=== PATIENT | male | born 1970 | race African-American/Black ===

== ENCOUNTER 2016-07-20 07:58 | Inpatient (IN) ==
[2016-07-20] MEDS ORDERED: DILTIAZEM 100 MG VIAL.ADD IV ONE (08:16)
[2016-07-20] MEDS ORDERED: SODIUM CHLORIDE 0.9% 100 ML IV ONE (08:16)
[2016-07-20] MEDS ORDERED: DILTIAZEM 50 MG/10 ML VIAL IV ONE (08:17)
[2016-07-20] MEDS ORDERED: DILTIAZEM 50 MG/10 ML VIAL IV STA ×3 (08:26→08:59)
[2016-07-20] MEDS ORDERED: SODIUM CHLORIDE 0.9% 500 ML IV STA (08:29)
[2016-07-20 08:35] LABS: Basophils % 0.2 % (0.0-0.8); Eosinophils # 0.3 10*3/uL (0.0-0.87); Eosinophils % 2.8 % (0.00-10.9); Hemoglobin 15.8 GM/DL (14.0-18.0); Immature Granulocytes % 0.2 %; Immature Granulocytes Absolute 0.02 #; Lymphocytes # 2.4 10*3/uL (1.4-4.0); Lymphocytes % 23.9 % (21.2-54.2); Mean Corpuscular HGB Conc 31.6 GM/DL (32-36); Mean Corpuscular Hemoglobin 25 PG (27-34); Mean Corpuscular Volume 80.4 FL (87-102); Monocytes # 0.6 10*3/uL (0.11-0.8); Neutrophils # 6.8 10*3/uL (1.4-7.4); Neutrophils % 66.9 % (38.7-73.9); Platelet Count 222 T/CUMM (130-400); Red Blood Count 6.22 MC/CUMM (3.8-5.5); Red Cell Distribution Width 14.3 % (9.3-17.3); White Blood Count 10.2 T/CUMM (4-12)
[2016-07-20] MEDS: DILTIAZEM INJ 100 MG in SODIUM CHLORIDE 0.9% 100 ML IV SCH ×2 (08:36→08:37)
[2016-07-20 09:01] LABS: Alanine Aminotransferase 38 U/L (16-61); Albumin 3.4 G/DL (3.4-5.0); Alkaline Phosphatase 119 U/L (45-117); Aspartate Amino Transferase 18 U/L (0-37); Blood Urea Nitrogen 10 MG/DL (7-18); Calcium 8.9 MG/DL (8.5-10.1); Glucose 108 MG/DL (74-106); Osmolality,Calculated 278.4 MOS/KG (273-304); Potassium 3.8 MMOL/L (3.5-5.1); Sodium 140 MMOL/L (136-145); Total Protein 7.5 G/DL (6.4-8.3); Troponin I Only < 0.015 NG/ML (0.00-0.045)
--- NOTE | 2016-07-20 09:05 | Emergency Department Note ---
Tootie Prater Hilary, am scribing for, and in the presence of, Felice Price MD 09: 05. Dee Prater James D, MD, personally performed the services described in this documentation, ascribed by Ana Maria Sommers in my presence, and it is both accurate and complete 905 . Arrival - Arrival Chief Complaint: Arrhythmia/Palpitations Stated Complaint: afib ED Nursing Triage Note: C/O HEART PALPITATIONS WITH ONSET 0600 THIS MORNING. DENIES SOB. PT THINKS HE IS IN AFIB Mode of Arrival: Ambulatory Limitations: No Limitations Source: Patient - History of Present Illness HPI Narrative: Patient is 46 year old Male presenting to the ED with complaints of heart palipatations onset of 06:00 this morning. Patient states that this happens every year and denies chest pain or SOB. 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 No other complaints or problems stated in the ED. Onset (ago): hour(s) Severity: moderate Severity scale (1-10): 3 Allergies/Adverse Reactions: Allergies Allergy/AdvReac Type Severity Reaction Status Date / Time No Known Allergies Allergy Verified 03/10/15 18:05 Home Medications: Home Medications Medication Instructions Recorded Confirmed Type Aspirin [Ecotrin] 81 mg PO DAILY 08/03/14 07/20/16 History Atorvastatin [Lipitor] 20 mg PO DAILY 08/03/14 07/20/16 History Ergocalciferol (Vitamin D2) 50,000 unit PO FR 07/20/16 07/20/16 History [Vitamin D2] Simvastatin [Zocor] 10 mg PO DAILY 07/20/16 07/20/16 History diltiaZEM HCl [Diltiazem HCl] 120 mg PO DAILY 07/20/16 07/20/16 History Review of System - Review of System 12 point system: reviewed and no additional remarkable complaints except as stated - Review of System Cardiovascular: Present: palpitations. Absent: chest pain, dyspnea on exertion Medical,Surgical,& Family Hx - Medical History Cardio: History of: Cardiac Dysrhythmia (AFIB) Endocrine: History of: Dyslipidemia Respiratory: History of: Obstructive Sleep Apnea Gastrointestinal: History of: GERD - Surgical History Cardiac Surgeries: Patient Denies: Cardiac Catheterization Neurologic Surgeries: Patient denies: Neurologic Surgery Abdominal Surgeries: Surgical HX of: Abdominal Surgery (BENIGN TUMOR REMOVED FROM COLON) - Family History Family History: Reports;: Family Heart Disease - Social History Smoking Status: Never smoker Frequency of Alcohol Use: None Type of Drug Use: None Exam Physical Examination: GENERAL: This is a well-nourished, well-developed Male in no apparent distress. VITAL SIGNS: Temperature: 98.8 F Pulse: 100H Respiratory: 18 BP: 126/101 O2Sat: 96 HEENT: Head is normocephalic and atraumatic. Pupils are equally round and reactive to light. Extraocular movement are intact. Oropharynx is benign with moist mucous membranes. NECK: Neck is soft and supple without tenderness. There are no masses. There is no lymphadenopathy. LUNGS: Lungs are clear to auscultation bilaterally. Chest rises symmetrically. There is no chest wall tenderness. CV: Heart is irregulary irregular and rhythm without murmurs, rubs, or gallops. ABDOMEN: Abdomen is soft, non-tender to palpation. There are no abnormal masses palpated. There is no organomegaly. Bowel sounds are present and active. SKIN: Skin is warm and dry. No rash. EXTREMITIES: Patient has full range of motion without tenderness. There is no pedal edema. NEUROLOGIC: Awake, alert, and oriented x4. Cranial nerves II through XII are grossly intact. There are no motorsensory deficits. PSYCHIATRIC: Normal affect. Normal mood. Vital Signs: Vital Signs Temperature 98.8 F 07/20/16 08:27 Pulse Rate 105 H 07/20/16 08:30 Respiratory Rate 20 07/20/16 08:30 Blood Pressure 111/71 07/20/16 08:30 O2 Sat by Pulse Oximetry 97 07/20/16 08:30 - Cardiovascular Cardiovascular exam: Present: tachycardia, irregular rhythm Course - Consultations Consultation #1: Discussed with Dr. Castillo. Patient will be admitted to his service. Initial orders written for him. He will assume care upon patient's arrival to the frances. Time: 09:21 Results - Labs CBC & BMP: 07/20/16 08:25 07/20/16 08:25 Lab Results: I have reviewed the patients labs Labs: Laboratory Tests 07/20/16 08:25 WBC 10.2 RBC 6.22 H Hgb 15.8 Hct 50.0 MCV 80.4 L MCH 25 L MCHC 31.6 L Laboratory Tests 07/20/16 08:25 Chloride 108 H Glucose 108 H Alkaline Phosphatase 119 H Globulin 4.1 H Albumin/Globulin Ratio 0.8 L - EKG EKG results: interpreted by ERMD - Impressions EKG: Atrial fib with RVR, rate 159, ST segment depression, normal axis. - Diagnostic Findings Procedure: Chest x-ray: image reviewed by me Disposition Clinical Impression: Atrial fibrillation with RVR Case discussed with: patient Condition: Stable
--- NOTE | 2016-07-20 09:15 | EKG Report ---
Please refer to the EKG image. Final interpretation is pending.
[2016-07-20] MEDS ORDERED: ENOXAPARIN 100 MG/ML SYRINGE SUBCUT STA (09:19)
[2016-07-20] MEDS ORDERED: ENOXAPARIN 100 MG/ML SYRINGE SUBCUT ONE (09:37)
--- NOTE | 2016-07-20 09:47 | XRay Report ---
XR chest 1V portable Indication: A. Fib with rapid ventricular response. Chest one view: Comparison 08/15/2015. Heart size remains at the upper limits normal, with continued marked pulmonary hypoinflation and central pulmonary vascular crowding. No pulmonary edema or focal infiltrate shown. Impression: No change. Continued marked pulmonary hypoinflation. PROCEDURE INTERPRETED AT [facility] DEPARTMENT OF RADIOLOGY Final Report Signed by: Robbi Calvo M.D.
--- NOTE | 2016-07-20 10:44 | Cardiology History & Physical ---
Assessment and Plan - Time spent with patient Time spent with patient: Greater than 30 minutes (1) Bronchitis Status: Acute Assessment and plan: SEE PLAN OF CARE LISTED BELOW Current Visit: Yes (2) Swelling Status: Acute Assessment and plan: SEE PLAN OF CARE LISTED BELOW Current Visit: Yes (3) Atrial fibrillation with rapid ventricular response Status: Acute Assessment and plan: SEE PLAN OF CARE LISTED BELOW Current Visit: No (4) Hyperlipidemia Status: Chronic Assessment and plan: SEE PLAN OF CARE LISTED BELOW Current Visit: No (5) Obesity Status: Chronic Assessment and plan: SEE PLAN OF CARE LISTED BELOW Current Visit: No (6) Obstructive sleep apnea Status: Chronic Assessment and plan: SEE PLAN OF CARE LISTED BELOW Current Visit: No History of Present Illness Chief complaint: atrial fib with RVR History of present illness: Mr. Reynolds is a 46 year old male followed by Dr. Rip Izaguirre. He was last seen his cardiology clinic August 28, 2015. Risk factors include: hyperlipidemia, obesity. History of obstructive sleep apnea with reported compliance. Patient has a history of paroxysmal atrial fibrillation. He was last seen in hospital July 2015 with a second onset of atrial fibrillation. At one point, he was taking Xarelto which caused hematuria and bright red bleeding from the rectum. This resolved when he stopped his medication he has been maintained on aspirin only. His CHADVASC score has been 0. Mr. Reynolds tells me when he was here last, his rhythm returned back to normal sinus rhythm after being given IV medication, then a pill. He has never received KOLE or DCCV. Patient believes he can tell when he is in a normal sinus rhythm. Yesterday, he began to experience coughing, congestion, sore throat and sinus drainage believed to be related to excessive pollen. This morning, he woke up coughing heavily and felt his heart start racing. He did not try vagal maneuvers. Because the heart racing became intense he felt as if he should be evaluated in the emergency department. Upon arrival to the emergency department, noted to be in atrial fibrillation with rapid ventricular response with an EKG documented around 160 bpm. He still maintained on IV Cardizem 50 mg/h his heart rate is now at 10 5 bpm. He denies chest pain, heaviness or tightness. His breathing has been stable. Patient is concerned that he has gained a lot of weight recently. He states he feels as if he is swelling more so than usual over the past several weeks. I will order an echocardiogram to evaluate LVEF. I have asked that his family bring his sleep device that he can use tonight. I will add a magnesium level to his labs. Will further discuss with Dr. Castillo management of this patient and await his recommendatIONS. ASSESSMENT/PLAN: 1. ATRIAL FIB WITH RVR -IV Cardizem now controlling rate. Will adjust accordingly. He is being transferred to our telemetry unit where we will continue to monitor him. 2. DYSLIPIDEMIA -continue lipid-lowering agent. Fasting lipid profile in the morning 3. SLEEP APNEA -will ask that he bring his sleep device to use each night 4. OBESITY -dietary counseling prior to discharge 5. SINUS CONGESTION AND COUGH -we will treat for sinus drainage, possible bronchitis 6. SWELLING -will order echocardiogram. Home Medications Medication Instructions Recorded Confirmed Type Aspirin [Ecotrin] 81 mg PO DAILY 08/03/14 07/20/16 History Atorvastatin [Lipitor] 20 mg PO DAILY 08/03/14 07/20/16 History Ergocalciferol (Vitamin D2) 50,000 unit PO FR 07/20/16 07/20/16 History [Vitamin D2] Simvastatin [Zocor] 10 mg PO DAILY 07/20/16 07/20/16 History diltiaZEM HCl [Diltiazem HCl] 120 mg PO DAILY 07/20/16 07/20/16 History Allergies Allergy/AdvReac Type Severity Reaction Status Date / Time No Known Allergies Allergy Verified 03/10/15 18:05 Review of systems: REVIEW OF SYSTEMS: - Constitutional Constitutional: Present: Fatigue. Absent: syncope, anorexia, night sweats - EENT Eyes: Absent: blurry vision, loss of vision, diplopia Ears: Absent: decreased hearing, ear pain, ear discharge Throat: Sore throat from sinus drainage - Cardiovascular Cardiovascular: Denies chest pain with exertion, dyspnea on exertion. Feels like he is retaining fluid though no actual edema noted. Rare palpitations. Respiratory Respiratory: Present: cough, nonproductive. Absent: wheezing, hemoptysis, change in phlegm color - Gastrointestinal Gastrointestinal: Denies: constipation. Absent: abdominal pain, hematemesis, hematochezia, melena, change in bowel habits, nausea - Genitourinary Genitourinary: Absent: difficulty urinating, dysuria, urinary hesitancy, flank pain - Musculoskeletal Musculoskeletal: Present: back pain Absent: joint swelling, muscle cramps, muscle weakness - Neurological Neurological: Present: normal gait without frequent falls. Absent: dizziness, hemiparesis - Psychiatric Psychiatric: Absent: anxiety, depression, difficulty concentrating - Endocrine Endocrine: Present: fatigue. Absent: cold intolerance, heat intolerance, polyuria, polyphagia, polydipsia - Hematologic/Lymphatic Hematologic/Lymphatic: Present: easy bruising. Absent: easy bleeding, easy bruisability -Integumentary Integumentary: Absent: lesions, rashes, skin breakdown Medical,Surgical,& Family Hx - Medical History Cardio: History of: Cardiac Dysrhythmia (AFIB) No history of: CAD, Hypertension Endocrine: History of: Dyslipidemia Respiratory: History of: Obstructive Sleep Apnea Gastrointestinal: History of: GERD - Surgical History Cardiac Surgeries: Patient Denies: Cardiac Catheterization Neurologic Surgeries: Patient denies: Neurologic Surgery Abdominal Surgeries: Surgical HX of: Abdominal Surgery (BENIGN TUMOR REMOVED FROM COLON) - Family History Family History: Reports;: Family Heart Disease - Social History Smoking Status: Never smoker Have you smoked in the last 12 months: No Frequency of Alcohol Use: None Type of Drug Use: None Functional capacity: independent ambulation Cardiology Physical Exam - Constitutional Vitals: Vital Signs Temp Pulse Resp BP Pulse Ox 98.8 F 105 H 20 111/71 97 07/20/16 08:27 07/20/16 08:30 07/20/16 08:30 07/20/16 08:30 07/20/16 08:30 Exam: General: [Appears well with no apparent distress.] [Pleasant and cooperative. ] [Appears comfortable.] HEENT: [PERRL, normocephalic, atraumatic. Mucous membranes moist. No jaundice noted. Conjunctiva moist and clear, sclerae anicteric] Neck: No JVD/HJR, no thyromegaly or lymphadenopathy noted. No carotid bruit appreciated Cardiac: [Regular rate and rhythm.] [No murmur rub or gallop.] Lungs: [Clear to auscultation without accessory muscle use to assist the respiratory pattern.] Not requiring oxygen Abdomen: Soft, bowel sounds normoactive. Nontender and nondistended. No abdominal bruit or thrill noted. No masses noted. Musculoskeletal: No fluid collection. Decreased range of motion is noted. Extremities: No clubbing, cyanosis noted. [ No edema noted.] Upper extremity pulses 2+. Lower extremity pulses 2+. Capillary refill less than 3 seconds. Skin: No unusual lesions or rashes. No skin breakdown appreciated. Neuro: Awake, alert and oriented 3. Moves all extremities well without hemiparesis or paralysis. No essential tremor is appreciated. Result/EKG - Labs CBC & BMP: 07/20/16 08:25 07/20/16 08:25 Lab Results: I have reviewed the past 24 hour labs - Diagnostic Findings Procedure: Chest x-ray: report reviewed by sc - EKG EKG results: interpreted by sc EKG shows: atrial fibrillation (RVR)
[2016-07-20 11:08] LABS: Free T4 (Free Thyroxine) 0.97 NG/DL (0.76-1.46); Magnesium 1.8 MG/DL (1.8-2.4)
[2016-07-20] MEDS ORDERED: MAGNESIUM SULF RIDER 4 GM in PREMIX 1 EACH IV PRN (11:11)
[2016-07-20] MEDS ORDERED: MAGNESIUM SULF RIDER 2 GM in PREMIX 1 EACH IV PRN (11:11)
[2016-07-20] MEDS: CETIRIZINE 10 MG TABLET PO SCH (12:32)
[2016-07-20] MEDS: AZITHROMYCIN 250 MG TABLET PO SCH (12:32)
[2016-07-20] MEDS: SODIUM CHLORIDE 0.9% 1,000 ML IV SCH (12:32)
[2016-07-20 12:42] LABS: INR 1.1; PT Patient Result 11.4 SECS; Partial Thromboplastin Time 30.6 SECS (0-40)
[2016-07-20] MEDS ORDERED: POTASSIUM CHLORIDE 20 MEQ TABLET PO ONE (12:43)
[2016-07-20] MEDS ORDERED: DRONEDARONE 400 MG TABLET PO ONE (13:00)
[2016-07-20] MEDS: FLUTICASONE 50 MCG NASAL SPRAY 16 GM BOTTLE BOTH NARES SCH (13:51)
[2016-07-20] MEDS: DRONEDARONE 400 MG TABLET PO SCH (17:35)
--- NOTE | 2016-07-20 19:53 | ECHO Report ---
ReynoldsFelice Exam Date: 07/20/2016 14:44 Referring Physician: Technologist: Merry Couch Age: 46 Ht (in): 66 Wt (lb): 240 Gender: M Exam Location: [facility] Echo Indications: bronchitis, hyperlipidemia, obesity, OTILIA, palpitation, A Fib, hyperglycemia BP: 117 / 72 HR: 86 Rhythm: Atrial fibrillation Technical Quality: IMPRESSIONS Normal left ventricular cavity size. Moderate concentric left ventricular hypertrophy. Left ventricular ejection fraction is estimated at 60 %. Mildly dilated right ventricle, with normal systolic function. Mild biatrial enlargement. Mild aortic insufficiency. MEASUREMENTS (Male / Female) Normal Values 2D ECHO LV Diastolic Diameter PLAX 4.2 cm 4.2 - 5.9 / 3.9 - 5.3 cm LV Systolic Diameter PLAX 3.0 cm LV Fractional Shortening PLAX 28.8 % IVS Diastolic Thickness 1.7 cm 0.6 - 1.0 / 0.6 - 0.9 cm LVPW Diastolic Thickness 1.3 cm 0.6 - 1.0 / 0.6 - 0.9 cm RV Internal Dim ED PLAX 2.7 cm Aortic Root Diameter 2.8 cm LA Systolic Diameter LX 4.3 cm 3.0 - 4.0 / 2.7 - 3.8 cm DOPPLER TR Peak Velocity 214.0 cm/s TR Peak Gradient 18.3 mmHg FINDINGS Left Ventricle Normal left ventricular cavity size. Moderate concentric left ventricular hypertrophy. Left ventricular ejection fraction is estimated at 60 %. Unable to estimate diastolic function due to A. fib. Right Ventricle Mildly dilated right ventricle, with normal systolic function. Right Atrium Mild right atrial enlargement Left Atrium Mild left atrial enlargement. Mitral Valve Structurally normal mitral valve, with trace regurgitation. Aortic Valve Structurally normal aortic valve, with mild insufficiency, without stenosis. Tricuspid Valve Morphologically normal tricuspid valve. Mild tricuspid valve regurgitation. Tricuspid regurgitation velocities suggest a PAP of 18.3 mmHg + RAP. Pulmonic Valve Morphologically normal pulmonic valve. Trace pulmonary valve regurgitation. Pericardium No pericardial effusion. Aorta Normal size aortic root and proximal ascending aorta. Dat Castillo (Electronically Signed) Final Date: 20 July 2016 19:52
[2016-07-20] MEDS ORDERED: ATORVASTATIN 20 MG TABLET PO SCH (21:00)
[2016-07-20] MEDS: ENOXAPARIN 100 MG/ML SYRINGE SUBCUT SCH (21:16)
[2016-07-21] MEDS: SODIUM CHLORIDE 0.9% 1,000 ML IV SCH (01:00)
[2016-07-21 06:23] LABS: Basophils % 0.1 % (0.0-0.8); Eosinophils # 0.4 10*3/uL (0.0-0.87); Eosinophils % 3.3 % (0.00-10.9); Hematocrit 46.4 VOL% (42.0-52.0); Hemoglobin 14.6 GM/DL (14.0-18.0); Immature Granulocytes % 0.2 %; Immature Granulocytes Absolute 0.02 #; Lymphocytes % 28.5 % (21.2-54.2); Mean Corpuscular HGB Conc 31.5 GM/DL (32-36); Mean Corpuscular Hemoglobin 26 PG (27-34); Mean Corpuscular Volume 81.7 FL (87-102); Mean Platelet Volume 10.1 FL (9.6-12.0); Monocytes # 0.5 10*3/uL (0.11-0.8); Monocytes % 4.9 % (1.7-12.7); Neutrophils # 6.7 10*3/uL (1.4-7.4); Platelet Count 212 T/CUMM (130-400); Red Blood Count 5.68 MC/CUMM (3.8-5.5); Red Cell Distribution Width 14.4 % (9.3-17.3); White Blood Count 10.6 T/CUMM (4-12)
[2016-07-21 06:58] LABS: Calcium 8.9 MG/DL (8.5-10.1); Osmolality,Calculated 285.8 MOS/KG (273-304); Potassium 4.2 MMOL/L (3.5-5.1)
[2016-07-21 07:01] LABS: Calcium 8.8 MG/DL (8.5-10.1); Potassium 4.2 MMOL/L (3.5-5.1); Risk Ratio 3.5
[2016-07-21] MEDS ORDERED: ASPIRIN EC 81 MG TABLET PO SCH (09:00)
--- NOTE | 2016-07-21 09:34 | EKG Report ---
Please refer to the EKG image. Final interpretation is pending.
[2016-07-21] MEDS: CETIRIZINE 10 MG TABLET PO SCH (10:18)
[2016-07-21] MEDS: ENOXAPARIN 100 MG/ML SYRINGE SUBCUT SCH (10:20)
[2016-07-21] MEDS: DILTIAZEM INJ 100 MG in SODIUM CHLORIDE 0.9% 100 ML IV SCH (10:22)
[2016-07-21] MEDS: AZITHROMYCIN 250 MG TABLET PO SCH (10:51)
[2016-07-21] MEDS: FLUTICASONE 50 MCG NASAL SPRAY 16 GM BOTTLE BOTH NARES SCH (10:53)
[2016-07-21] MEDS: DRONEDARONE 400 MG TABLET PO SCH (10:53)
--- NOTE | 2016-07-21 11:18 | Discharge Summary ---
Hospital Course - Hospital Course Hospital Course: Mr. Reynolds is a 46 year old male followed by Dr. Rip Izaguirre. He has a history of hyperlipidemia, obesity, paroxysmal atrial fibrillation, sleep apnea (compliant). Yesterday he presented to the emergency room after experiencing palpitations with his heart racing. He was noted to be in atrial fibrillation with rapid ventricular response with heart rate around 160 bpm. He was started on IV Cardizem drip which was weaned after his heart rate improved. He was started on Multaq 400 mg p.o. twice daily yesterday. He was planned for KOLE cardioversion today with Dr. Castillo but has since converted to normal sinus rhythm and is doing well. QTC this morning is 398. Blood pressure has been well controlled. Current labs are stable. At this time, he has met criteria for discharge and is ready to go home. We will allow him to be discharged home today on the current therapy. We will start him on long-term anticoagulation at discharge. He will continue this for several weeks and then discontinue if he has no relapse of atrial fibrillation. He will follow-up with Dr. Izaguirre in 1 week with an EKG. If his paroxysmal atrial fibrillation persists, he may be a candidate for ablation in the future. We will place a consult for outpatient Cardiac Rehab for risk factor modification. He should also continue his CPAP nightly. Mr. Reynolds also complained of sinus congestion and cough on admission. He is being treated with Azythromycin, Flonase, and Zyrtec and should avoid over the counter medications which include: decongestants, alpha-adrenergics such as phenylephrine. He should also avoid caffeine. - Time spent with patient Time with patient DS: Less than 30 minutes Diagnosis - Discharge Diagnosis (1) Atrial fibrillation with RVR Status: Resolved (2) Bronchitis Status: Acute (3) Swelling Status: Acute (4) Hyperlipidemia Status: Chronic (5) Obesity Status: Chronic (6) Obstructive sleep apnea Status: Chronic Specialty Discharge - Follow Up or Referrals Follow up with: Rip Izaguirre MD [Physician] - 1 Week (Follow up with Dr. Izaguirre in 1 week with an EKG. ) Discharge Plan - Discharge Data Disposition: Disch To Home/Self Care Condition at Discharge: Stable Discharge Diet: heart healthy Activity: resume usual activities as tolerated Hygiene: no restrictions Weight Bearing at Discharge: full weight bearing Contact your physician if you experience:: fever over 101, Difficulty voiding, Redness or swelling, Nausea/Vomiting, Shortness of breath, Bleeding, pain uncontrolled by pain medications - Discharge Medications New Apixaban [Eliquis] 5 mg PO BID #60 tablet Azithromycin Tab [Zithromax Tab] 500 mg PO DAILY #6 tablet Cetirizine Tab [ZyrTEC Tab] 10 mg PO DAILY #30 tablet Dronedarone [Multaq] 400 mg PO BID W/MEALS #60 tablet Fluticasone 50 Mcg Nasal [place] [Flonase Nasal [place]] 2 spray BOTH NARES DAILY #1 bottle Continue Atorvastatin [Lipitor] 20 mg PO DAILY Aspirin [Ecotrin] 81 mg PO DAILY Ergocalciferol (Vitamin D2) [Vitamin D2] 50,000 unit PO FR Discontinued diltiaZEM HCl [Diltiazem HCl] 120 mg PO DAILY - Follow Up or Referral Follow Up: Rip Izaguirre MD [Physician] - 2 Weeks (Follow up with Dr. Izaguirre in 2 weeks with an EKG. ) - Forms/Instructions Instructions: Atrial Fibrillation (GEN), Heart Healthy Diet (GEN) Exam - Constitutional Vitals: Period Temp Pulse Resp BP Sys/Saenz Pulse Ox Last 24 Hr 97 F-98.1 F 48-90 18-21 98-123/53-76 94-98 Exam: General: Present: Appears Well, No Apparent Distress. Pleasant and cooperative. Appears comfortable. HEENT: Present: PERRL, Normocephaly, atraumatic. Mucus Membranes Moist. No jaundice noted. Conjunctiva moist and clear, sclerae anicteric Neck: Present: Supple Neck, Midline Trachea, No Masses, No Bruit Cardiac: Present: Regular Rate and Rhythm, No Murmur Lungs: Present: Clear to auscultation bilaterally, no wheeze, rhonchi, rales. Neuro: Present: Awake, alert, and oriented x3. Moves all extremities well without hemiparesis or paralysis. Grossly Intact. Absent: Resting Tremor, Essential Tremor Abdomen: Present: Soft, Active Bowel Sounds, No Masses, Non-Tender, nondistended. No abdominal bruit or thrill noted. Skin: Present: Clear. Absent: Rash, No skin breakdown. Back: Normal inspection, no vertebral tenderness. Musculoskeletal: Present: No Fluid Collection, No Pain, Normal Range of Motion Extremities: Present: Normal Gait, No Clubbing, No Cyanosis, Upper Extr. Pulses 2+, Lower Extr. Pulses 2+, No edema. Capillary refill less than 3 seconds. Discharge Results Labs on day of discharge: Labs from last 24 hours 07/21/16 07/21/16 07/21/16 06:01 06:00 06:00 WBC 10.6 RBC 5.68 H Hgb 14.6 Hct 46.4 MCV 81.7 L MCH 26 L MCHC 31.5 L RDW 14.4 Plt Count 212 MPV 10.1 Neut % (Auto) 63.0 Lymph % (Auto) 28.5 Granite % (Auto) 4.9 Eos % (Auto) 3.3 Baso % (Auto) 0.1 Neut # (Auto) 6.7 Lymph # (Auto) 3.0 Granite # (Auto) 0.5 Eos # (Auto) 0.4 Baso # (Auto) 0.0 Immature Gran % 0.2 Nucleated RBC % 0.0 Immature Gran # 0.02 Nucleated RBCs # 0.00 INR PT Patient/Control Mix Circ Anticoag PTT Sodium 144 143 Potassium 4.2 4.2 Chloride 110 H 111 H Carbon Dioxide 26 26 Anion Gap 12.2 10.2 BUN 15 14 Creatinine 1.00 1.00 GFR Calculation 127 127 BUN/Creatinine Ratio 15.00 14.00 Glucose 89 91 Calculated Osmolality 285.8 285.0 Calcium 8.9 8.8 Magnesium 2.0 2.0 Triglycerides 110 Cholesterol 140 LDL Cholesterol 92.0 VLDL Cholesterol 22.0 HDL Cholesterol 40 Heart Disease Risk Ratio 3.50 07/20/16 12:07 WBC RBC Hgb Hct MCV MCH MCHC RDW Plt Count MPV Neut % (Auto) Lymph % (Auto) Granite % (Auto) Eos % (Auto) Baso % (Auto) Neut # (Auto) Lymph # (Auto) Granite # (Auto) Eos # (Auto) Baso # (Auto) Immature Gran % Nucleated RBC % Immature Gran # Nucleated RBCs # INR 1.1 PT Patient/Control Mix 11.4 Circ Anticoag PTT 30.6 Sodium Potassium Chloride Carbon Dioxide Anion Gap BUN Creatinine GFR Calculation BUN/Creatinine Ratio Glucose Calculated Osmolality Calcium Magnesium Triglycerides Cholesterol LDL Cholesterol VLDL Cholesterol HDL Cholesterol Heart Disease Risk Ratio DS: Provider Date of admission: 07/20/16 09:22 Primary care physician: . No PCP Attending physician on admission: Dat Castillo MD Consults: 07/20/16 11:36 Consult to Pharmacy [CONS] Routine Reason for Pharmacy Consult: Adjust Meds Renal Funct 07/20/16 12:48 Consult to Cardiac Rehabilitation [CONS] Routine Reason for Cardiac Rehabilitation: Risk Factor Modification Discharging clinician: ANUJ Anthony Expected date of discharge: 07/21/16
[2016-07-21 11:58] VITALS: BP 120/75
[2016-07-24] MEDS ORDERED: ERGOCALCIFEROL 50,000 UNIT CAPSULE PO SCH (11:04)
== END 2016-07-21 13:50 | disposition home or self-care (01) | DRG 310 ==
LOC: N.ED 07:58 → N.EDINP 09:22 → N.TELES 10:03
PROVIDERS: ADMIT Internal Medicine Clinical Cardiac Electrophysiology; ATTEND Internal Medicine Clinical Cardiac Electrophysiology